=== PATIENT | male | born 1980 | race American Indian/Alaskan Native ===

== ENCOUNTER 2016-11-06 17:39 | Emergency (ER) | payer OTHER ==
[2016-11-06 18:48] VITALS: BP 121/76
--- NOTE | 2016-11-06 18:53 | Emergency Department Report ---
Entered by BRANDEN RUDD, acting as scribe for KAHLIL YU NP. Chief Complaint: Extremity Injury, Lower Stated Complaint: LT FOOT AND ANKLE /HEEL PAIN Time Seen by Provider: 11/06/16 18:44 - HPI History of Present Illness: 36 y/o male presents with constant, 4/10, sharp left foot injury that occurred 2 days ago while playing basketball. Pt notes pain is worse near the back of the foot near and bottom of the heel. Pt denies swelling. He endorses tobacco use and ETOH use. - ROS Review of Systems: +left foot pain -swelling - Exam Vital Signs: Vital Signs 11/06/16 18:46 Temperature 98.9 F Pulse Rate 72 Respiratory 16 Rate Blood Pressure 121/76 O2 Sat by Pulse 100 Oximetry Physical Exam: pt is ambulatory, steady gait, pt looks well and non-toxic MSE screening note: Focused history and physical exam performed. Due to findings the following was ordered: xr ED Disposition for MSE Condition: Stable This documentation as recorded by the scribe,BRANDEN RUDD,accurately reflects the service I personally performed and the decisions made by GIGI molina TRACY M , [place].
--- NOTE | 2016-11-06 20:23 | XRay Report ---
FINAL REPORT EXAM: XR ANKLE 3+V LT HISTORY: LEFT ANKLE pain sp injury TECHNIQUE: Left ankle three views 3 images PRIORS: None. FINDINGS: Bone mineralization appears within normal limits. There is a traction enthesophyte arising from the posterior aspect of the calcaneus. There is a lucency in the midportion of the enthesophyte. No gross abnormality is seen in the soft tissues. IMPRESSION: 1. There is a lucent focus in the traction enthesophyte arising from the posterior calcaneus. Possibility of avulsion injury is not excluded in the setting of trauma. There are currently no studies available for direct comparison.
--- NOTE | 2016-11-07 01:53 | Emergency Department Report ---
ED Lower Extremity HPI - General Chief Complaint: Extremity Injury, Lower Stated Complaint: LT FOOT AND ANKLE /HEEL PAIN Time Seen by Provider: 11/06/16 18:49 Source: patient, RN notes reviewed Mode of arrival: Ambulatory Limitations: Physical Limitation - History of Present Illness Initial Comments: This is a 36-year-old male. He is previously unknown to me. 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 The patient presents to the ER with left-sided Achilles tendon pain. Patient reports that he played basketball over the weekend. He did not get hit, and he did not land with significant force onto the left foot. The pain is sharp. It increases with palpation and range of motion. It decreases with rest. No other injuries. No other complaints. MD Complaint: ankle injury -: Sudden Injury: Ankle: Left Type of Injury: unknown Place: street/outdoors Severity: moderate Improves With: rest Worsens With: movement - Related Data Previous Rx's Medication Instructions Recorded Last Taken Type Ibuprofen [Motrin] 600 mg PO Q8H PRN #30 tablet 11/07/16 Unknown Rx Allergies Allergy/AdvReac Type Severity Reaction Status Date / Time No Known Allergies Allergy Verified 11/06/16 18:49 ED Review of Systems ROS: Stated complaint: LT FOOT AND ANKLE /HEEL PAIN Other details as noted in HPI Constitutional: denies: fever Respiratory: denies: cough Cardiovascular: denies: chest pain Gastrointestinal: denies: abdominal pain Genitourinary: denies: dysuria Musculoskeletal: arthralgia, myalgia. denies: joint swelling Skin: denies: lesions Neurological: denies: weakness ED Past Medical Hx - Past Medical History Previous Medical History?: No - Surgical History Past Surgical History?: No - Social History Smoking Status: Current Every Day Smoker Substance Use Type: Alcohol - Medications Home Medications: Home Medications Medication Instructions Recorded Confirmed Last Taken Type Ibuprofen [Motrin] 600 mg PO Q8H PRN #30 tablet 11/07/16 Unknown Rx ED Physical Exam - General Limitations: No Limitations General appearance: alert, in no apparent distress - Head Head exam: Present: atraumatic, normocephalic - Eye Eye exam: Present: normal appearance, EOMI. Absent: nystagmus - ENT ENT exam: Present: normal exam, mucous membranes moist, normal external ear exam - Neck Neck exam: Present: normal inspection, full ROM. Absent: tenderness, meningismus - Respiratory Respiratory exam: Present: normal lung sounds bilaterally. Absent: respiratory distress, wheezes, rales, rhonchi, stridor, chest wall tenderness - Cardiovascular Cardiovascular Exam: Present: regular rate, normal rhythm, normal heart sounds. Absent: bradycardia, tachycardia, irregular rhythm, systolic murmur, diastolic murmur, rubs, gallop - GI/Abdominal GI/Abdominal exam: Present: soft, normal bowel sounds. Absent: distended, tenderness, guarding, rebound, rigid, pulsatile mass - Rectal Rectal exam: Present: deferred - Extremities Exam Extremities exam: Present: normal inspection, full ROM, tenderness, normal capillary refill, other (the compartments are soft. 2+ pulses noted in the bilateral upper and lower extremities. The malleoli are nontender bilaterally. Left-sided Achilles tendon is tender. The Bravo test is intact. The calcaneus is nontender. There is no redness, pus or streaking.). Absent: pedal edema, joint swelling, calf tenderness - Back Exam Back exam: Present: normal inspection, full ROM. Absent: tenderness, CVA tenderness (R), CVA tenderness (L), muscle spasm, paraspinal tenderness, vertebral tenderness - Neurological Exam Neurological exam: Present: alert, oriented X3, other (Extraocular movements intact. Tongue midline. No facial droop. Facial sensation intact to light touch in the V1, V2, V3 distribution bilaterally. 5 and 5 strength in 4 extremities.. Sensation is intact to light touch in 4 extremities.). Absent: motor sensory deficit - Psychiatric Psychiatric exam: Present: normal affect, normal mood - Skin Skin exam: Present: warm, dry, intact, normal color. Absent: rash ED Course Vital Signs 11/06/16 18:46 Temperature 98.9 F Pulse Rate 72 Respiratory 16 Rate Blood Pressure 121/76 O2 Sat by Pulse 100 Oximetry ED Lower Extremity MDM - Lab Data Vital Signs 11/06/16 18:46 Temperature 98.9 F Pulse Rate 72 Respiratory 16 Rate Blood Pressure 121/76 O2 Sat by Pulse 100 Oximetry - Radiology Data Radiology results: report reviewed, image reviewed X-ray of the ankle suggests possible avulsion fracture of the calcaneus. Otherwise no acute disease. - Medical Decision Making Differential diagnosis: Achilles tendinitis, partial Achilles rupture, calcaneal avulsion fracture Assessment and plan: 36-year-old male, well developed, appears athletic, with probable Achilles tendinitis. Patient will be placed in a posterior splint, he will be made nonweightbearing, and he is given crutches. Patient instructed to remain nonweightbearing, avoid strenuous physical activity, and to follow-up with outpatient orthopedics or sports medicine. Return precautions are reviewed , he declines pain medication at this time. At this point in time, his physical examination is not consistent with a ruptured Achilles tendon. Critical care attestation.: If time is entered above; I have spent that time in minutes in the direct care of this critically ill patient, excluding procedure time. ED Disposition Clinical Impression: Achilles tendonitis Disposition: DC-01 TO HOME OR SELFCARE Is pt being admited?: No Does the pt Need Aspirin: No Condition: Good Instructions: Achilles Tendinitis (ED), Ankle Exercises (GEN) Additional Instructions: Rest and avoid heavy lifting. Avoid strenuous physical activity. Remain nonweightbearing on the left lower extremity. Use the crutches as directed. Take the pain medication as directed. Follow up with an orthopedic surgeon or sports medicine physician within the next week. Return to the ER right away with new pain, worsened pain, migration of pain, fevers, chills, chest pain, shortness of breath, intractable nausea or vomiting, confusion, inability to tolerate liquid feeds. Prescriptions: Ibuprofen [Motrin] 600 mg PO Q8H PRN #30 tablet PRN Reason: Pain Referrals: PRIMARY CAREMD [Primary Care Provider] - 3-5 Days REGINA ANDRES MD [Staff Physician] - 3-5 Days Forms: Work/School Release Form(ED)
== END 2016-11-07 02:31 | disposition home or self-care (01) ==
LOC: ED 17:39
DX: M76.62 Achilles tendinitis, left leg (principal); F17.200 Nicotine dependence, unspecified, uncomplicated
CPT/HCPCS: 99283